=== PATIENT | female | born 1945 | race Native Hawaiian/Other Pacific Islander ===

== ENCOUNTER 2016-07-13 23:31 | Observation (INO) | payer MEDICARE ==
[~2016-07-13] VITALS: Ht 157.5 cm; Wt 65.0 kg
[~2016-07-13 23:31] MED LIST: LORTA5 PO; PRED20 PO; RAMI2.5C29 PO
[2016-07-13 23:35] VITALS: BP 183/86; PULSE 102; RESP 18; TEMP 98.6; O2SAT 99
[2016-07-13] MEDS ORDERED: RAMI2.5C PO (23:44)
[2016-07-13 23:47] VITALS: BP 177/97; PULSE 131; RESP 18; O2SAT 99
[2016-07-13 23:49] VITALS: BP 171/81; PULSE 103; RESP 18; O2SAT 98
[2016-07-14] VITALS: BP 171/81; PULSE 92; RESP 16; O2SAT 98
[2016-07-14 00:01] VITALS: BP 177/97; PULSE 111; RESP 16; O2SAT 98
--- NOTE | 2016-07-14 00:03 | PD ---
HPI Chief Complaint: Cardiac Complaint Time Seen by Provider: 23:54 Travel History International Travel<30 days: No Contact w/Intl Traveler<30days: No Traveled to known affect area: No History of Present Illness HPI 70-year-old female presents to the emergency department by private transportation for complaint of 3-4 days of palpitations and heart racing however decided to come to the emergency room tonight because it was interfering with her sleep. No report of chest pain shortness of breath sweats referred neck jaw back shoulder arm or abdominal pain no near-syncope or syncope. Patient denies history of cardiac disease or rhythm disturbance. Patient takes antihypertensive medication for blood pressure elevation. Patient denies history of CAD, dyslipidemia, diabetes, or tobaccoism. Patient reports she is followed by primary care provider in [place] and does not see a car mechanic. Patient is a nonsmoker. Patient denies history of thyroid disease. No recent febrile illness. Patient rates discomfort/pain 0/10 in intensity. The patient has noted increased and intestinal gas. PFSH Past Medical History Autoimmune Disease: No Blood Disorders: No Anxiety: No Depression: No Cancer: No Cardiovascular Problems: No Endocrine: No Genitourinary: No Hypertension: Yes Musculoskeletal: No Neurologic: Yes Psychiatric: No Respiratory: No Past Surgical History Abdominal Surgery: Yes (huyen) Cholecystectomy: Yes Other Surgery: Yes Social History Alcohol Use: No Tobacco Use: No Substance Use: No Allergies-Medications (Allergen,Severity, Reaction): Coded Allergies: No Known Allergies (Verified , 07/13/16) Reported Meds & Prescriptions Reported Meds & Active Scripts Active Deltasone (Prednisone) 20 Mg Tab 20 Mg PO TID Hydrocodone/Acetaminophen 5 mg/325 mg Acetaminophen 325/5 Hydrocodone Tab 1 Tab PO Q8 PRN Hydrocodone/Acetaminophen 5 mg/325 mg Acetaminophen 325/5 Hydrocodone Tab 1 Tab PO Q6H PRN Reported Ramipril 2.5 Mg Cap 2.5 Mg PO DAILY Altace (Ramipril) 2.5 Mg Cap 1 Cap PO DAILY Review of Systems Except as stated in HPI: all other systems reviewed are Neg General / Constitutional: No: Fever, Chills Eyes: No: Visual changes HENT: No: Headaches, Lightheadedness Cardiovascular: Positive: Palpitations, Tachycardia, No: Chest Pain or Discomfort, Diaphoresis, Syncope, Dyspnea on exertion, Edema Respiratory: No: Cough, Shortness of Breath, Wheezing Gastrointestinal: No: Nausea, Vomiting, Abdominal Pain Genitourinary: No: Dysuria, Flank Pain Musculoskeletal: No: Myalgias, Arthralgias, Cramping, Edema, Pain Skin: No Rash, No Hives Neurologic: No: Weakness, Dizziness, Syncope, Focal Abnormalities, Coordination Problem Psychiatric: No: Anxiety, Depression Endocrine: No: Heat Intolerance Hematologic/Lymphatic: No: Easy Bruising Physical Exam Narrative GENERAL: Well-developed well-nourished female in no acute distress no respiratory distress SKIN: Warm and dry. HEAD: Normocephalic. EYES: No scleral icterus. No injection or drainage. NECK: Supple, trachea midline. No JVD or lymphadenopathy. CARDIOVASCULAR: Regular rate and rhythm without murmurs, gallops, or rubs. RESPIRATORY: Breath sounds equal bilaterally. No accessory muscle use. GASTROINTESTINAL: Abdomen soft, non-tender, nondistended. MUSCULOSKELETAL: No cyanosis, or edema. Bilateral radial and dorsalis pedis pulses 2+ to palpation. BACK: Nontender without obvious deformity. No CVA tenderness. Data Data Last Documented VS Vital Signs Date Time Temp Pulse Resp B/P Pulse Ox O2 Delivery O2 Flow Rate FiO2 07/14/16 00:01 111 16 177/97 98 Room Air 07/13/16 23:35 98.6 Orders Electrocardiogram (07/13/16 23:54) Basic Metabolic Panel (Bmp) (07/13/16 23:54) Ckmb (Isoenzyme) Profile (07/13/16 23:54) Complete Blood Count With Diff (07/13/16 23:54) Magnesium (Mg) (07/13/16 23:54) Prothrombin Time / Inr (Pt) (07/13/16 23:54) Act Partial Throm Time (Ptt) (07/13/16 23:54) Troponin I (07/13/16 23:54) Chest, Single Ap (07/13/16 23:54) Ecg Monitoring (07/13/16 23:54) Bilateral Bp Monitoring (07/13/16 23:54) Iv Access Insert/Monitor (07/13/16 23:54) Oximetry (07/13/16 23:54) Oxygen Administration (07/13/16 23:54) Sodium Chloride 0.9% Flush (Ns Flush) (07/14/16 00:00) Thyroid Stimulating Hormone (07/13/16 23:54) CKMB (07/13/16 23:59) CKMB% (07/13/16 23:59) Aspirin Chew (Aspirin Chew) (07/14/16 09:00) Admit Order (Ed Use Only) (07/14/16 ) ^ Saline Lock (07/14/16 02:01) Resp Oxygen Familia C Titrat 1-4 L (07/14/16 ) Notify Dr: Other (07/14/16 02:01) Sodium Chloride 0.9% Flush (Ns Flush) (07/14/16 09:00) Sodium Chloride 0.9% Flush (Ns Flush) (07/14/16 02:15) Labs Laboratory Tests Test 07/13/16 23:59 White Blood Count 12.1 TH/MM3 Red Blood Count 4.69 MIL/MM3 Hemoglobin 12.4 GM/DL Hematocrit 38.5 % Mean Corpuscular Volume 82.0 FL Mean Corpuscular Hemoglobin 26.5 PG Mean Corpuscular Hemoglobin 32.3 % Concent Red Cell Distribution Width 14.4 % Platelet Count 308 TH/MM3 Mean Platelet Volume 9.5 FL Neutrophils (%) (Auto) 44.0 % Lymphocytes (%) (Auto) 41.5 % Monocytes (%) (Auto) 10.3 % Eosinophils (%) (Auto) 3.1 % Basophils (%) (Auto) 1.1 % Neutrophils # (Auto) 5.3 TH/MM3 Lymphocytes # (Auto) 5.0 TH/MM3 Monocytes # (Auto) 1.2 TH/MM3 Eosinophils # (Auto) 0.4 TH/MM3 Basophils # (Auto) 0.1 TH/MM3 CBC Comment DIFF FINAL Differential Comment Prothrombin Time 10.9 SEC Prothromb Time International 1.0 RATIO Ratio Activated Partial 25.8 SEC Thromboplast Time Sodium Level 140 MEQ/L Potassium Level 3.6 MEQ/L Chloride Level 104 MEQ/L Carbon Dioxide Level 27.0 MEQ/L Anion Gap 9 MEQ/L Blood Urea Nitrogen 17 MG/DL Creatinine 0.68 MG/DL Estimat Glomerular Filtration 85 ML/MIN Rate Random Glucose 114 MG/DL Calcium Level 9.3 MG/DL Magnesium Level 1.9 MG/DL Total Creatine Kinase 124 U/L Creatine Kinase MB 0.6 NG/ML Troponin I LESS THAN 0.02 NG/ML Thyroid Stimulating Hormone 1.520 uIU/ML 3rd Gen [facility] Medical Decision Making Medical Screen Exam Complete: Yes Emergency Medical Condition: Yes Medical Record Reviewed: Yes Interpretation(s) EKG: Atrial fibrillation with RVR rate 137 and sinus tachycardia rate 100 rare unifocal PVC no acute ST elevation or injury pattern change noted EKG #2: Normal sinus rhythm with occasional unifocal PVC rate [address] elevation or injury pattern change age-indeterminate QS septally V1 V2 with T- wave inversion CXR: NAD Differential Diagnosis Palpitations, arrhythmia, ACS, thyroid dysfunction, electrolyte disturbance, PE Narrative Course Patient placed on supervisor wound IV access obtained specimens collected and sent for resulting EKG performed which showed sinus rhythm converting to atrial fibrillation with RVR; patient went into sinus rhythm and EKG performed sinus rhythm At 12:59 AM patient remains in sinus rhythm rate 85 foot: Patient up out of bed to go the bathroom; patient reports she feels well Physician Communication Physician Communication call placed to [facility] service for obs -- discussed with Dr Hernandez --obs admit Diagnosis Primary Impression: New onset atrial fibrillation Additional Impression: Paroxysmal atrial fibrillation with RVR Admitting Information Admitting Physician Requests: Observation Adrienne Gaston MD July 14, 2016 00:03
--- NOTE | 2016-07-14 00:30 | RADRPT ---
EXAM DATE/TIME: 07/14/2016 00:15 [facility] COMPARISON: No previous studies available for comparison. INDICATIONS : Chest pain. MEDICAL HISTORY : Hypertension. SURGICAL HISTORY : None. ENCOUNTER: Initial ACUITY: 2 days PAIN SCORE: 3/10 LOCATION: Bilateral chest FINDINGS: A single view of the chest demonstrates the lungs to be symmetrically aerated without evidence of mas s, infiltrate or effusion. The cardiomediastinal contours are unremarkable. Osseous structures are intact. CONCLUSION: No acute intrathoracic disease. Dallas Bonilla MD on July 14, 2016 at 0:29 Board Certified Radiologist. This report was verified electronically.
[2016-07-14 00:54] LABS: AUTOMATED NEUTROPHIL # 5.3 TH/MM3 (1.8-7.7); BASOPHIL # 0.1 TH/MM3 (0-0.2); BASOPHIL % 1.1 % (0.0-2.0); EOSINOPHIL # 0.4 TH/MM3 (0-0.4); EOSINOPHIL % 3.1 % (0.0-4.0); HEMATOCRIT 38.5 % (35.0-46.0); HEMO FLAGS DIFF FINAL; LYMPH % 41.5 % (9.0-44.0); MEAN CORPUSCULAR HEMOGLOBIN 26.5 PG (27.0-34.0); MEAN CORPUSCULAR HGB CONC 32.3 % (32.0-36.0); MONO % 10.3 % (0.0-8.0); PLATELET COUNT 308 TH/MM3 (150-450); RED BLOOD COUNT 4.69 MIL/MM3 (4.00-5.30); RED CELL DISTRIBUTION WIDTH 14.4 % (11.6-17.2); WHITE BLOOD COUNT 12.1 TH/MM3 (4.0-11.0)
[2016-07-14 01:20] LABS: ANION GAP 9 MEQ/L (5-15); BLOOD UREA NITROGEN 17 MG/DL (7-18); CHLORIDE 104 MEQ/L (98-107); CREATINE KINASE 124 U/L (26-192); GLOMERULAR FILTRATION RATE 85 ML/MIN (>89); MAGNESIUM 1.9 MG/DL (1.5-2.5); POTASSIUM 3.6 MEQ/L (3.5-5.1); SODIUM (NA) 140 MEQ/L (136-145)
[2016-07-14 01:30] LABS: APTT (PATIENT) 25.8 SEC (24.3-30.1); PROTHROMBIN TIME - PATIENT 10.9 SEC (9.8-11.6)
[2016-07-14 01:33] LABS: CKMB 0.6 NG/ML (0.5-3.6)
[2016-07-14 02:09] VITALS: PULSE 85; O2SAT 98
[2016-07-14] MEDS ORDERED: SODIUM CHLORIDE 0.9% FLUSH 10 ML FLUSH IV FLUSH PRN (02:15)
[2016-07-14] MEDS ORDERED: ONDANSETRON HCL 4 MG/2 ML VIAL IVP PRN (02:15)
[2016-07-14] MEDS ORDERED: BISACODYL 10 MG SUPP RECTAL PRN (02:15)
[2016-07-14] MEDS ORDERED: ACETAMINOPHEN/HYDROcodone 325 MG/5 MG TAB PO PRN (02:15)
[2016-07-14] MEDS ORDERED: ACETAMINOPHEN 325 MG TAB PO PRN (02:15)
[2016-07-14] MEDS ORDERED: SODIUM CHLOR 0.9% 1000 ML INJ 1,000 ML IV SCH (02:15)
[2016-07-14] MEDS ORDERED: SODIUM CHLORIDE 0.9% FLUSH 10 ML FLUSH IVF PRN ×2 (02:15)
[2016-07-14] MEDS ORDERED: MORPHINE SULFATE 4 MG/ML INJ IV PRN (02:15)
[2016-07-14] MEDS ORDERED: METOPROLOL TARTRATE 25 MG TAB PO SCH (09:00)
[2016-07-14] MEDS ORDERED: HEPARIN SODIUM - SQ 10,000 UNITS/ML VIAL SQ SCH (09:00)
[2016-07-14] MEDS ORDERED: SODIUM CHLORIDE 0.9% FLUSH 10 ML FLUSH IV FLUSH SCH ×2 (09:00)
[2016-07-14] MEDS ORDERED: ASPIRIN 81 MG CHEW TAB CHEW SCH (09:00)
--- NOTE | 2016-07-14 17:04 | EKG ---
Date Performed: 07/13/2016 Time Performed: 23:45:33 PTAGE: 70 years EKG: Normal Sinus rhythm , possible premature ventricular contractures verses abberrantly conducted beats. Supraventricular ta chycardia initiated by premature atrial Contractions. The mechanism of a tachycardia can not be ident ified, but there May be atrial activity and the rhythm is not suggestive of atrial Fibrillation. Ante rolateral ST segment changes associated with the Tachycardia, consider and exclude myocardial ischmia . When compard to previous tracing, supraventricular tachycardia And atrial ectopy is a new finding. There has been an increase in the nonspecific ST segment Changes. MODERATE ST DEPRESSION ABNORMAL ECG PREVIOUS TRACING : 06/21/2005 16.24 DOCTOR: Yasmin Maria Interpretating Date/Time 07/14/2016 17:03:30
--- NOTE | 2016-07-14 17:07 | EKG ---
Date Performed: 07/13/2016 Time Performed: 23:56:20 PTAGE: 70 years EKG: Sinus rhythm WITH OCCASIONAL VENTRICULAR PREMATURE COMPLEXES When compared to previous tracing, the supraventricu lar Tachycardia has resolved. There has been improvement in the anterior ST segment changes. BORDERLI NE ECG PREVIOUS TRACING : 07/13/2016 23.45 DOCTOR: Yasmin Maria Interpretating Date/Time 07/14/2016 17:05:34
== END 2016-07-14 02:25 | disposition left against medical advice (07) ==
LOC: NEPC 23:31 → NEDA 07-14 02:02
PROVIDERS: ADMIT Hospitalist; ATTEND Hospitalist
DX: R00.0 Tachycardia, unspecified (principal); I48.0 Paroxysmal atrial fibrillation; I10 Essential (primary) hypertension
CPT/HCPCS: 71010; 80048; 82550; 82552; 83735; 84443; 84484; 85025; 85610; 85730; 93005